=== PATIENT | male | born 1990 | race American Indian/Alaskan Native ===

== ENCOUNTER 2019-01-30 23:47 | Emergency (ER) | payer SELFPAY ==
[2019-01-31 00:32] VITALS: BP 148/90
== END 2019-01-31 01:20 | disposition left against medical advice (07) ==
LOC: ED 23:47
DX: Z11.3 Encounter for screening for infections with a predominantly sexual mode of transmission (principal); Z53.21 Procedure and treatment not carried out due to patient leaving prior to being seen by health care provider